=== PATIENT | male | born 1940 | race Caucasian/White ===

== ENCOUNTER 2020-05-05 13:34 | Emergency (ER) | payer BC, MEDICARE ==
[~2020-05-05] VITALS: Ht 190.5 cm; Wt 86.6 kg
--- NOTE | 2020-05-05 13:48 | NUR ---
THE PATIENT IS BIB HIS DUE TO R EYEBROW LACERATION S/P TRIP AND FALL, DENIES KO. THE PATIENT DENIES ANY DIZZINESS. IN ROOM AIR AND DENIES SOB. RESPIRATION REGULAR AND UNLABORED. PATIENT IS ALERT AND ORIENTED X3. WILL CONTINUE TO MONITOR.
[2020-05-05] MEDS ORDERED: TDAP [DIPH/PERTUSSIS/TET] 0.5 ML VIAL IM ONE ×3 (14:22→14:41)
[2020-05-05 14:45] VITALS: BP 130/87
--- NOTE | 2020-05-05 14:45 | NUR ---
Patient discharged to home in stable condition. Written and verbal after care instructions given. Patient verbalizes understanding of instruction.
== END 2020-05-05 14:45 | disposition home or self-care (01) ==
LOC: ER 13:37
DX: S01.81XA Laceration without foreign body of other part of head, initial encounter (principal); W01.0XXA Fall on same level from slipping, tripping and stumbling without subsequent striking against object, initial encounter; Y93.01 Activity, walking, marching and hiking; Y92.89 Other specified places as the place of occurrence of the external cause; Y99.8 Other external cause status
CPT/HCPCS: 70450-TC; 90715

== ENCOUNTER 2020-05-11 10:30 | Emergency (ER) | payer BC ==
[~2020-05-11] VITALS: Ht 190.5 cm; Wt 83.9 kg
[2020-05-11 10:39] VITALS: BP 144/95
--- NOTE | 2020-05-11 10:55 | NUR ---
DR REBOLLEDO IN TO SEE PATIENT. SUTURES REMOVED. PT TOLERATED PROCEDURE WELL. OK FOR DISCHARGE.
== END 2020-05-11 11:03 | disposition home or self-care (01) ==
LOC: ER 10:32
DX: S01.111D Laceration without foreign body of right eyelid and periocular area, subsequent encounter (principal); X58.XXXD Exposure to other specified factors, subsequent encounter

== ENCOUNTER 2020-07-30 01:23 | Emergency (ER) | payer BC ==
[~2020-07-30] VITALS: Ht 190.5 cm; Wt 83.9 kg
[2020-07-30 01:23] VITALS: BP 134/105
[2020-07-30] MEDS ORDERED: LIDOCAINE 2% JEL UROJET 10 ML MM ONE ×2 (01:34→02:00)
--- NOTE | 2020-07-30 01:53 | NUR ---
FR kenyon catheter inserted per sterile protocal. Immediate output 250 ML of urine, collected, sent to lab.
[2020-07-30 02:11] LABS: BILIRUBIN,URINE NEGATIVE (NEGATIVE); COLOR,URINE YELLOW (YELLOW); LEUKOCYTE ESTERASE ,URINE NEGATIVE (NEGATIVE); NITRITE, URINE POSITIVE (NEGATIVE); PH,URINE 6.5 (5.0-8.0); PROTEIN,URINE NEGATIVE (NEGATIVE); UGLUCOSE NEGATIVE (NEGATIVE)
[2020-07-30 02:42] LABS: WBC,URINE 0-2 /HPF (0-3)
[2020-07-30 02:43] LABS: BACTERIA,URINE Many /HPF (None Seen); SQUAMOUS EPITHELIAL CELL,UR Rare /HPF (None Seen)
--- NOTE | 2020-07-30 03:05 | NUR ---
MÉNDEZ REMOVED, PROVIDED WITH LEG BAG. PT AMBULATED OUT OF ED. VSS.
== END 2020-07-30 03:07 | disposition home or self-care (01) ==
LOC: ER 01:26
DX: R33.9 Retention of urine, unspecified (principal)
CPT/HCPCS: 51702; 76857; 81001; 87086; 87186; 99284; J3490

== ENCOUNTER 2020-08-07 03:44 | Emergency (ER) | payer BC ==
[~2020-08-07] VITALS: Ht 188 cm; Wt 83.9 kg
[2020-08-07 03:44] VITALS: BP 184/125
== END 2020-08-07 05:09 | disposition home or self-care (01) ==
LOC: ER 03:46
DX: T83.091A Other mechanical complication of indwelling urethral catheter, initial encounter (principal)

== ENCOUNTER 2020-08-07 12:39 | Emergency (ER) | payer BC ==
[~2020-08-07] VITALS: Ht 188 cm; Wt 83.9 kg
[2020-08-07 12:49] VITALS: BP 142/77
[2020-08-07] MEDS ORDERED: LIDOCAINE 2% JEL UROJET 10 ML MM ONE ×2 (13:00→13:03)
--- NOTE | 2020-08-07 13:16 | NUR ---
MÉNDEZ CATHETER CHANGED, INSERTED FR16 CHANGED INTO A LEG BAG. PATIENT TOLERATED PROCEDURE WELL. NO URINE OUTPUT AT THIS TIME. PER PATIENT, HE DIDN'T DRINK A LOT OF WATER TODAY.
--- NOTE | 2020-08-07 13:35 | NUR ---
URINE NOTED ON THE TUBING.
== END 2020-08-07 13:35 | disposition home or self-care (01) ==
LOC: ER 12:44
DX: R33.9 Retention of urine, unspecified (principal); T83.091A Other mechanical complication of indwelling urethral catheter, initial encounter; Z60.2 Problems related to living alone
CPT/HCPCS: 51702; 99284; J3490